=== PATIENT | male | born 1965 | race Caucasian/White ===

== ENCOUNTER 2019-02-08 21:09 | Emergency (ER) | payer OTHER ==
[~2019-02-08] VITALS: Ht 170.2 cm; Wt 88.5 kg
[2019-02-08 21:09] VITALS: BP 148/99
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
--- NOTE | 2019-02-08 22:12 | NUR ---
AMBULATED TO ER BED 3 FROM [facility]
[2019-02-08] MEDS ORDERED: IBUPROFEN 800 MG TAB PO ONE (22:45)
[2019-02-08] MEDS ORDERED: CYCLOBENZAPRINE 10 MG TAB PO ONE (22:45)
[2019-02-08] MEDS ORDERED: HYDROcodone/APAP 5/325 MG 1 TAB TAB PO ONE (23:30)
[2019-02-09 00:25] VITALS: BP 137/88
--- NOTE | 2019-02-09 00:25 | NUR ---
DISCHARGE PAPERS GIVEN TO PT. 0/10 PAIN. A&OX4. AMBULATORY WITH STEADY GAIT. RX OF FLEXERIL AND NAPROXEN GIVEN. SIDE EFFECTS EXPLAINED. INSTRUCTED WITH F/U WITH PCP AND WHEN TO RETURN TO ER. PT VERBALIZED UNDERSTANDING OF DC INSTRUCTIONS. ALL QUESTIONS ANSWERED.
== END 2019-02-09 00:25 | disposition home or self-care (01) ==
LOC: MED 21:09
DX: S39.012A Strain of muscle, fascia and tendon of lower back, initial encounter (principal); M54.2 Cervicalgia; V89.2XXA Person injured in unspecified motor-vehicle accident, traffic, initial encounter; Y93.89 Activity, other specified; Y92.89 Other specified places as the place of occurrence of the external cause; Y99.8 Other external cause status
CPT/HCPCS: 99284